=== PATIENT | female | born 1970 | race Caucasian/White ===

== ENCOUNTER → 2017-07-19 | Outpatient (CLI) | payer OTHER, MEDICARE, MEDICAID ==
[~2017-07-19] MED LIST: ABILIFY; ACID REDUCER200 MG PO; ALPRAZOLAM 0.50.5 MG PO; AMOXICILLIN 50500 MG PO; AMOXICILLIN500 M1 PO; ATIVAN0.5 MG PO; AUGMENTIN 500-1 EACH PO; BACTRIM DS TAB1 EACH PO; BUSPAR; CEFDINIR300 MG PO; CELEXA 20 MG TA20 M1 PO; CIPRO500 MG PO; CLONAZEPAM 1 MG1 M1 PO; COZAAR 50 MG TA50 MG PO; CRUTCH1 EACH MC; CYMBALTA; CYMBALTA20 MG PO; CYMBALTA30 MG PO; DESYREL; DIFLUCAN150 M1 PO; DIFLUCAN150 MG PO; DUONEB 2.5-0.5 M3 ML INH; FISHOIL; FLAGYL500 MG PO; FLEXERIL PO; FLONASE 0.05%50 MCG NASAL; FUROSEMIDE; GENTAMICIN OPH3.5 GM OP; HYDROCHLOROTHIA50 MG PO; HYDROCODONE-APA1 TA1 PO; IBUPROFEN 800800 M1 PO; KLONOPIN1 MG; LAMICTAL XR100 MG PO; LAMOTRIGINE; LATUDA20 MG; LISINOPRIL-HCT1 EACH PO; LISINOPRIL20 MG PO; LMTHF-PYRIDOXI1 EACH PO; LOSARTAN POTASS50 MG PO; MECLIZINE; MEDROL DOSPAK21 TA1 PO; MUCINEX D ER 61 EACH PO; NAPROXEN 500MG500 MG PO; NORCO 5-325 TA1 EACH PO; NORFLEX100 MG PO; OMEPRAZOLE40 MG PO; ONDANSETRON HCL4 M2 PO; OXYBUTYNIN 5 MG5 M1 GT; PERCOCET 10-321 EAC1 PO; PERCOCET 10-321 EACH PO; PEXEVA20 MG PO; PHENERGAN 25 MG25 M1 PO; PREDNISONE 20 M20 M1 PO; PREDNISONE50 MG PO; PRILOSEC 10MG C10 M1; PRILOSEC 10MG C10 MG PO; PRILOSEC 20 MG20 MG PO; PROAIR HFA8.5 GM IH; PROMETHAZINE-C120 ML PO; PROMETHAZINE-D120 ML PO; PROMETHAZINE/C118 ML PO; RESTORIL15 MG PO; RESTORIL7.5 MG; SIMVASTATIN20 MG PO; TEMAZEPAM; ULTRAM 50MG TAB50 MG PO; ULTRAM50 MG PO; VASCEPA0.5 GM PO; VICODIN ES 7.51 EACH; VITAMIN D; ZANTAC; ZANTAC 150MG T150 MG PO; ZOCOR20 MG PO; ZOCOR40 MG PO; ZOFRAN ODT4 MG SUBLING; ZPAK PO; [UNRECOGNIZED DRUG - REMARK]
== END ==
LOC: M.NUC 07:12
DX: R10.11 Right upper quadrant pain (principal)

== ENCOUNTER 2018-01-11 11:28 | Emergency (ER) | payer OTHER, MEDICARE, MEDICAID ==
[~2018-01-11] VITALS: Ht 157.5 cm; Wt 64.9 kg
[~2018-01-11 11:28] MED LIST changes: -PRILOSEC 10MG C10 MG PO; -ZANTAC 150MG T150 MG PO
[2018-01-11 11:39] VITALS: BP 103/67
[2018-01-11] MEDS ORDERED: ZANTAC 150MG T150 MG PO (11:44)
[2018-01-11] MEDS ORDERED: PRILOSEC 10MG C10 MG PO (11:44)
== END 2018-01-11 12:43 | disposition home or self-care (01) ==
LOC: M.ERS 11:28
DX: S93.692A Other sprain of left foot, initial encounter (principal); F32.9 Major depressive disorder, single episode, unspecified; M79.7 Fibromyalgia; F41.9 Anxiety disorder, unspecified; N30.10 Interstitial cystitis (chronic) without hematuria; K21.9 Gastro-esophageal reflux disease without esophagitis; I10 Essential (primary) hypertension; E78.5 Hyperlipidemia, unspecified; M19.90 Unspecified osteoarthritis, unspecified site; F17.210 Nicotine dependence, cigarettes, uncomplicated; Z90.710 Acquired absence of both cervix and uterus; Z90.49 Acquired absence of other specified parts of digestive tract; Z88.1 Allergy status to other antibiotic agents; Z88.5 Allergy status to narcotic agent; Z88.8 Allergy status to other drugs, medicaments and biological substances; W10.8XXA Fall (on) (from) other stairs and steps, initial encounter; Y93.89 Activity, other specified; Y92.89 Other specified places as the place of occurrence of the external cause; Y99.8 Other external cause status

== ENCOUNTER → 2018-06-08 | Emergency (ER) | payer MEDICARE, MEDICAID ==
[~2018-06-08] VITALS: Ht 157.5 cm; Wt 71.0 kg
[~2018-06-08] MED LIST changes: +PRILOSEC 10MG C10 MG PO; +TESSALON PERLE100 MG PO; +ZANTAC 150MG T150 MG PO
[2018-06-08 10:04] VITALS: BP 115/39
== END ==
LOC: M.ERS 09:54
DX: J06.9 Acute upper respiratory infection, unspecified (principal); H92.01 Otalgia, right ear; F32.9 Major depressive disorder, single episode, unspecified; F41.9 Anxiety disorder, unspecified; K21.9 Gastro-esophageal reflux disease without esophagitis; M46.90 Unspecified inflammatory spondylopathy, site unspecified; I10 Essential (primary) hypertension; E78.5 Hyperlipidemia, unspecified; M79.7 Fibromyalgia; Z90.710 Acquired absence of both cervix and uterus; Z90.49 Acquired absence of other specified parts of digestive tract; F17.210 Nicotine dependence, cigarettes, uncomplicated; Z88.1 Allergy status to other antibiotic agents; Z88.8 Allergy status to other drugs, medicaments and biological substances

== ENCOUNTER 2018-07-28 10:14 | Emergency (ER) | payer MEDICARE, MEDICAID ==
[~2018-07-28] VITALS: Ht 157.5 cm; Wt 64.9 kg
[2018-07-28] MEDS ORDERED: ZOFRAN ODT4 MG DISSOLVE (10:23)
[2018-07-28] MEDS ORDERED: EPIPEN0.3 MG/0.1 IM (10:24)
[2018-07-28] MEDS ORDERED: REQUIP0.5 MG PO (10:25)
[2018-07-28 11:10] LABS: URINE BILIRUBIN NEGATIVE (Negative); URINE BLOOD TRACE (Negative); URINE CLARITY CLEAR; URINE COLOR YELLOW; URINE GLUCOSE-RANDOM NEGATIVE (Negative); URINE KETONES NEGATIVE (Negative); URINE LEUKOCYTES-REFLEX NEGATIVE (Negative); URINE NITRITE-REFLEX NEGATIVE (Negative); URINE PROTEIN NEGATIVE (Negative); URINE SPECIFIC GRAVITY >= 1.030 (1.005-1.030); URINE UROBILINOGEN 0.2 E.U./dl (0.2-1.0)
[2018-07-28 11:33] LABS: ABSOLUTE BASOPHILS 0.1 thou/uL (0.0-0.2); ABSOLUTE EOSINOPHILS 0.2 thou/uL (0.0-0.7); ABSOLUTE LYMPHOCYTES 3.3 thou/uL (0.8-5.3); ABSOLUTE MONOCYTES 0.5 thou/uL (0.0-1.2); ABSOLUTE NEUTROPHILS 4.2 thou/uL (1.6-8.1); BASOPHILS 0.9 %; EOSINOPHILS 2.1 %; HEMATOCRIT 42.6 % (37.0-47.0); HEMOGLOBIN 14.7 gm/dL (12.0-15.0); LYMPHOCYTES 39.9 %; MCH 31.6 pg (26.0-34.0); MCHC 34.6 g/dL (28.0-37.0); MCV 91.3 fL (80.0-100.0); MONOCYTES 6.6 %; MPV 7.5 fl. (7.2-11.1); NUCLEATED RBCS 0 /100WBC; PLATELET COUNT* 290 thou/uL (150-400); POLYS 50.5 %; RBC 4.67 mil/uL (4.20-5.00); RDW-CV 14.1 % (10.5-14.5); WBC 8.3 thou/uL (4.0-11.0)
[2018-07-28 11:51] LABS: CALCIUM 8.8 mg/dL (8.5-10.1); POTASSIUM 4.3 mmol/L (3.5-5.1)
[2018-07-28 11:56] LABS: ALBUMIN 3.4 g/dL (3.4-5.0); TOTAL BILIRUBIN 0.2 mg/dL (<0.1-1.0)
[2018-07-28 13:46] VITALS: BP 102/59
== END 2018-07-28 13:46 | disposition home or self-care (01) ==
LOC: M.ERS 10:14
PROVIDERS: Nurse Practitioner Family
DX: K59.00 Constipation, unspecified (principal); M79.7 Fibromyalgia; F32.9 Major depressive disorder, single episode, unspecified; F41.9 Anxiety disorder, unspecified; K21.9 Gastro-esophageal reflux disease without esophagitis; M13.88 Other specified arthritis, other site; I10 Essential (primary) hypertension; E78.5 Hyperlipidemia, unspecified; Z90.49 Acquired absence of other specified parts of digestive tract; Z90.710 Acquired absence of both cervix and uterus; F17.210 Nicotine dependence, cigarettes, uncomplicated; Z88.1 Allergy status to other antibiotic agents; Z88.8 Allergy status to other drugs, medicaments and biological substances

== ENCOUNTER 2019-05-13 08:49 | Emergency (ER) | payer MEDICARE, MEDICAID ==
[~2019-05-13] VITALS: Ht 157.5 cm; Wt 61.7 kg
[~2019-05-13 08:49] MED LIST changes: +EPIPEN0.3 MG/0.1 IM; +REQUIP0.5 MG PO; +ZOFRAN ODT4 MG DISSOLVE
[2019-05-13 09:35] VITALS: BP 119/59
== END 2019-05-13 19:54 | disposition home or self-care (01) ==
LOC: M.ERS 08:49
DX: J06.9 Acute upper respiratory infection, unspecified (principal); F32.9 Major depressive disorder, single episode, unspecified; F41.9 Anxiety disorder, unspecified; K21.9 Gastro-esophageal reflux disease without esophagitis; M79.7 Fibromyalgia; N30.10 Interstitial cystitis (chronic) without hematuria; M46.90 Unspecified inflammatory spondylopathy, site unspecified; Z88.1 Allergy status to other antibiotic agents; Z88.6 Allergy status to analgesic agent; Z88.8 Allergy status to other drugs, medicaments and biological substances; Z90.49 Acquired absence of other specified parts of digestive tract

== ENCOUNTER 2020-06-04 15:15 | Emergency (ER) | payer MEDICARE, MEDICAID ==
[~2020-06-04] VITALS: Ht 157.5 cm; Wt 67.6 kg
[2020-06-04 17:41] VITALS: BP 142/80
== END 2020-06-04 17:43 | disposition home or self-care (01) ==
LOC: M.ERS 15:15
DX: M25.521 Pain in right elbow (principal); M25.531 Pain in right wrist; K21.9 Gastro-esophageal reflux disease without esophagitis; I10 Essential (primary) hypertension; E78.5 Hyperlipidemia, unspecified; F17.210 Nicotine dependence, cigarettes, uncomplicated; Z88.8 Allergy status to other drugs, medicaments and biological substances; Z88.1 Allergy status to other antibiotic agents; Z88.2 Allergy status to sulfonamides; Z79.899 Other long term (current) drug therapy; Z90.710 Acquired absence of both cervix and uterus; Z90.49 Acquired absence of other specified parts of digestive tract; W18.30XA Fall on same level, unspecified, initial encounter; Y93.89 Activity, other specified; Y92.89 Other specified places as the place of occurrence of the external cause; Y99.9 Unspecified external cause status

== ENCOUNTER 2020-10-20 08:29 | Emergency (ER) | payer MEDICARE, MEDICAID ==
[~2020-10-20] VITALS: Ht 157.5 cm; Wt 64.9 kg
[2020-10-20 08:55] LABS: URINE BILIRUBIN NEGATIVE (Negative); URINE BLOOD NEGATIVE (Negative); URINE CLARITY CLEAR; URINE COLOR YELLOW; URINE GLUCOSE-RANDOM NEGATIVE (Negative); URINE KETONES NEGATIVE (Negative); URINE LEUKOCYTES-REFLEX NEGATIVE (Negative); URINE NITRITE-REFLEX NEGATIVE (Negative); URINE PROTEIN NEGATIVE (Negative); URINE SPECIFIC GRAVITY 1.025 (1.005-1.030); URINE UROBILINOGEN 0.2 E.U./dl (0.2-1.0)
[2020-10-20] MEDS ORDERED: CARAFATE 1 GM TA1 GM PO (08:57)
[2020-10-20 09:23] LABS: ABSOLUTE BASOPHILS 0.1 thou/uL (0.0-0.2); ABSOLUTE EOSINOPHILS 0.3 thou/uL (0.0-0.7); ABSOLUTE LYMPHOCYTES 3.8 thou/uL (0.8-5.3); ABSOLUTE MONOCYTES 0.7 thou/uL (0.0-1.2); BASOPHILS 1.2 %; EOSINOPHILS 2.7 %; HEMATOCRIT 43.4 % (37.0-47.0); HEMOGLOBIN 14.7 gm/dL (12.0-15.0); LYMPHOCYTES 38.6 %; MCH 29.9 pg (26.0-34.0); MCHC 33.8 g/dL (28.0-37.0); MCV 88.3 fL (80.0-100.0); MONOCYTES 6.8 %; MPV 7.3 fl. (7.2-11.1); NUCLEATED RBCS 0 /100WBC; PLATELET COUNT* 315 thou/uL (150-400); POLYS 50.7 %; RBC 4.91 mil/uL (4.20-5.00); RDW-CV 13.9 % (10.5-14.5); WBC 9.8 thou/uL (4.0-11.0)
[2020-10-20 09:31] LABS: CALCIUM 8.8 mg/dL (8.5-10.1); CREATININE 0.9 mg/dL (0.6-1.3); POTASSIUM 3.7 mmol/L (3.5-5.1)
[2020-10-20 09:43] LABS: ALBUMIN 3.7 g/dL (3.4-5.0); TOTAL BILIRUBIN 0.3 mg/dL (<0.1-1.0); TOTAL PROTEIN 7.3 g/dL (6.4-8.2)
[2020-10-20 10:19] VITALS: BP 112/56
== END 2020-10-20 10:20 | disposition home or self-care (01) ==
LOC: M.ERS 08:29
PROVIDERS: Family Medicine
DX: K43.9 Ventral hernia without obstruction or gangrene (principal); I10 Essential (primary) hypertension; E78.5 Hyperlipidemia, unspecified; K21.9 Gastro-esophageal reflux disease without esophagitis; Z88.2 Allergy status to sulfonamides; Z88.1 Allergy status to other antibiotic agents; Z88.8 Allergy status to other drugs, medicaments and biological substances; Z88.6 Allergy status to analgesic agent; Z90.49 Acquired absence of other specified parts of digestive tract; Z90.710 Acquired absence of both cervix and uterus

== ENCOUNTER 2020-12-30 09:24 | Emergency (ER) | payer MEDICARE, MEDICAID ==
[~2020-12-30] VITALS: Ht 157.5 cm; Wt 69.4 kg
[~2020-12-30 09:24] MED LIST changes: +CARAFATE 1 GM TA1 GM PO
[2020-12-30 11:16] VITALS: BP 148/72
== END 2020-12-30 11:16 | disposition home or self-care (01) ==
LOC: M.ERS 09:24
DX: S20.02XA Contusion of left breast, initial encounter (principal); S30.1XXA Contusion of abdominal wall, initial encounter; K21.9 Gastro-esophageal reflux disease without esophagitis; E78.5 Hyperlipidemia, unspecified; I10 Essential (primary) hypertension; N30.10 Interstitial cystitis (chronic) without hematuria; F17.210 Nicotine dependence, cigarettes, uncomplicated; Z88.6 Allergy status to analgesic agent; Z88.2 Allergy status to sulfonamides; Z88.1 Allergy status to other antibiotic agents; Z88.8 Allergy status to other drugs, medicaments and biological substances; Z90.710 Acquired absence of both cervix and uterus; Z90.49 Acquired absence of other specified parts of digestive tract; W14.XXXA Fall from tree, initial encounter; Y93.89 Activity, other specified; Y92.89 Other specified places as the place of occurrence of the external cause; Y99.8 Other external cause status